=== PATIENT | male | born 2000 | race Caucasian/White ===

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

== ENCOUNTER 2024-04-17 23:12 | Emergency (ER) | payer MEDICAID ==
[~2024-04-17] VITALS: Ht 180.3 cm; Wt 79.4 kg
[~2024-04-17 23:12] MED LIST: IBUP-1971 PO
[2024-04-17 23:23] VITALS: BP_SYST 140; PULSE 89; RESP 18; TEMP 97.8; O2SAT 98
== END 2024-04-18 00:33 | disposition home or self-care (01) ==
LOC: SED 23:12
DX: S43.491A Other sprain of right shoulder joint, initial encounter (principal); Z79.899 Other long term (current) drug therapy; X58.XXXA Exposure to other specified factors, initial encounter; Y93.89 Activity, other specified; Y92.89 Other specified places as the place of occurrence of the external cause; Y99.8 Other external cause status
CPT/HCPCS: 73030; 99283